=== PATIENT | female | born 1975 | race African-American/Black ===

== ENCOUNTER 2016-11-24 17:53 | Emergency (ER) | payer MEDICARE, MEDICAID ==
[2016-11-24] MEDS ORDERED: IBUPROFEN 800 MG TABLET PO ONE (19:06)
--- NOTE | 2016-11-24 19:09 | ER Document Report ---
ED Medical Screen (RME) - General Stated Complaint: NAUSEA Time seen by provider: 19:06 Mode of Arrival: Ambulatory Information source: Patient Notes: 40-year-old female presents to ED for nausea vomiting diarrhea or fever chills and cough. Her temperature was elevated at 102.3 in RME. Last menstrual period 10/28/2016 I have greeted and performed a rapid initial assessment of this patient. A comprehensive ED assessment and evaluation of the patient, analysis of test results and completion of medical decision making process will be conducted by an additional ED providers. TRAVEL OUTSIDE OF THE [place] IN LAST 30 DAYS: No - Related Data Allergies/Adverse Reactions: codeine Allergy (Verified 11/24/16 19:06) morphine Allergy (Verified 11/24/16 19:06) Past Medical History - Past Medical History Cardiac Medical History: Reports: Hx Hypertension Pulmonary Medical History: Reports: Hx Asthma Past Surgical History: Reports: Hx Orthopedic Surgery - spinal surgery - Immunizations Hx Diphtheria, Pertussis, Tetanus Vaccination: Yes
[2016-11-24 19:31] LABS: ABSOLUTE MONOCYTES (AUTO) 0.9 10^3/uL (0.1-1.4); ABSOLUTE NEUT (AUTO) 5.4 10^3/uL (1.7-8.2); BASOPHILS % (AUTO) 0.4 % (0-2); EOSINOPHILS % (AUTO) 0.2 % (0-6); HEMATOCRIT 36.9 % (36.0-47.0); HEMOGLOBIN 12.6 g/dL (12.0-15.5); HGB HCT DIFFERENCE 0.9; LYMPHOCYTES % (AUTO) 13.4 % (13-45); MEAN CORPUSCULAR HEMOGLOBIN 29.9 pg (27.0-33.4); MEAN CORPUSCULAR HGB CONC 34.1 g/dL (32.0-36.0); MEAN CORPUSCULAR VOLUME 88 fl (80-97); MONOCYTES % (AUTO) 12.7 % (3-13); RED CELL DISTRIBUTION WIDTH 15.1 % (11.5-14.0); SEGMENTED NEUTROPHILS % (AUTO) 73.3 % (42-78); WHITE BLOOD COUNT 7.4 10^3/uL (4.0-10.5)
[2016-11-24 19:50] LABS: APPEARANCE,URINE SLIGHTLY-CLOUDY; BILIRUBIN,URINE SMALL (NEGATIVE); GLUCOSE, URINE NEGATIVE (NEGATIVE); KETONES,URINE NEGATIVE (NEGATIVE); LEUKOCYTE ESTERASE,URINE NEGATIVE (NEGATIVE); NITRITE,URINE NEGATIVE (NEGATIVE); PROTEIN,URINE 100 mg/dL (NEGATIVE); URINE SPECIFIC GRAVITY 1.023
[2016-11-24 19:51] LABS: ALANINE AMINOTRANSFERASE 25 U/L (9-52); ALBUMIN 4.7 g/dL (3.5-5.0); ALKALINE PHOSPHATASE 87 U/L (38-126); ANION GAP 13 (5-19); ASPARTATE AMINO TRANSFERASE 26 U/L (14-36); BILIRUBIN,TOTAL 0.5 mg/dL (0.2-1.3); BLOOD UREA NITROGEN 8 mg/dL (7-20); CALCIUM 9.6 mg/dL (8.4-10.2); CARBON DIOXIDE 26 mmol/L (22-30); CHLORIDE 102 mmol/L (98-107); CREATININE RESULT 0.81 mg/dL (0.52-1.25); GLUCOSE 98 mg/dL (75-110); POTASSIUM 3.3 mmol/L (3.6-5.0); SODIUM 141.3 mmol/L (137-145); TOTAL PROTEIN 8.3 g/dL (6.3-8.2)
[2016-11-24] MEDS ORDERED: ONDANSETRON ODT 4 MG TAB (6 TAB/DSPK) PO PRN (23:16)
[2016-11-24] MEDS ORDERED: ONDANSETRON 4 MG TAB.RAPDIS PO ONE (23:16)
--- NOTE | 2016-11-24 23:20 | ER Document Report ---
ED General - General Chief Complaint: Fever Stated Complaint: NAUSEA Mode of Arrival: Ambulatory Notes: Patient is a 40-year-old female who presents with complaint of coughing and congestion. Some nausea. Vomiting 1. One episode of diarrhea. No fevers. No sick contacts that she is aware of. No other complaints at this time. No fevers. TRAVEL OUTSIDE OF THE [place] IN LAST 30 DAYS: No - Related Data Allergies/Adverse Reactions: codeine Allergy (Verified 11/24/16 19:06) morphine Allergy (Verified 11/24/16 19:06) Past Medical History - General Information source: Patient - Social History Smoking Status: Current Every Day Smoker Chew tobacco use (# tins/day): No Frequency of alcohol use: None Drug Abuse: None Family History: Reviewed & Not Pertinent Patient has suicidal ideation: No Patient has homicidal ideation: No - Past Medical History Cardiac Medical History: Reports: Hx Hypertension Pulmonary Medical History: Reports: Hx Asthma Renal/ Medical History: Denies: Hx Peritoneal Dialysis Past Surgical History: Reports: Hx Orthopedic Surgery - spinal surgery - Immunizations Hx Diphtheria, Pertussis, Tetanus Vaccination: Yes Review of Systems - Review of Systems Notes: My Normal Review Basic REVIEW OF SYSTEMS: CONSTITUTIONAL : Denies fever, chills, or sweats. Denies recent illness. EENT: Nasal congestion CARDIOVASCULAR: Denies chest pain. RESPIRATORY: Cough GASTROINTESTINAL: Denies abdominal pain. One episode of vomiting and diarrhea MUSCULOSKELETAL: Denies neck or back pain or joint pain or swelling. SKIN: Denies rash or skin lesions. NEUROLOGICAL: Denies altered mental status or loss of consciousness. Denies headache. Denies weakness or paralysis or loss of use of either side. Denies problems with gait or speech. Denies sensory or motor loss. ALL OTHER SYSTEMS REVIEWED AND NEGATIVE. Physical Exam - Vital signs Vitals: Temp Pulse Resp BP Pulse Ox 102.3 F H 93 16 166/97 H 100 11/24/16 19:04 11/24/16 19:04 11/24/16 19:04 11/24/16 19:04 11/24/16 19:04 - Notes Notes: General Appearance: Well nourished, alert, cooperative, no acute distress, no obvious discomfort. Well-appearing. Vitals: reviewed, See vital signs table. Head: no swelling or tenderness to the head Eyes: PERRL, EOMI, Conjuctiva clear Mouth: No decreasd moisture Throat: No pharyngeal erythema. No exudates. No tonsillar hypertrophy. Neck: Supple, no neck tenderness, No thyromegaly Lungs: No wheezing, No rales, No rhonci, No accessory muscle use, good air exchange bilaterally. Heart: Normal rate, Regular rythm, No murmur, no rub Abdomen: Normal BS, soft, No rigidity, No abdominal tenderness, No guarding, no rebound, no abdominal masses, no organomegaly Extremities: strength 5/5 in all extremities, good pulses in all extremities, no swelling or tenderness in the extremities, no edema. Skin: warm, dry, appropriate color, no rash Neuro: speech clear, oriented x 3, normal affect, responds appropriately to questions. Course - Vital Signs Vital signs: Temp Pulse Resp BP Pulse Ox 98.6 F 75 18 138/88 H 100 11/24/16 23:24 11/24/16 23:24 11/24/16 23:24 11/24/16 23:24 11/24/16 23:24 - Laboratory Result Diagrams: 11/24/16 19:15 11/24/16 19:15 Laboratory results interpreted by me: 11/24/16 11/24/16 11/24/16 19:15 19:15 19:15 RDW 15.1 H Potassium 3.3 L Total Protein 8.3 H Urine Protein 100 H Urine Blood SMALL H Urine Bilirubin SMALL H Urine Urobilinogen 4.0 H - Transfer of Care Notes: 11/25/16 06:07 Patient's fever improved after Tylenol. She does a lot of congestion on a Exam. Suspect she may have the flu and flu swab is negative. Flu swab does not have 100% sensitivity. She could have a different viral illness as well. She has no evidence of pneumonia. She. Ears are normal without evidence of otitis media. No evidence of pharyngitis on exam. At this time will treat patient with symptomatic care. We'll treat her nausea. Encouraged drink lots of fluids. I will have her take 2 days off work. I encouraged to return to ER shows difficulty breathing, worsening fevers, or feels unwell. Patient agrees with plan will be discharged home. Dictation of this chart was performed using voice recognition software; therefore, there may be some unintended grammatical errors. Discharge - Discharge Clinical Impression: URI (upper respiratory infection) Qualifiers: URI type: unspecified URI Qualified Code(s): J06.9 - Acute upper respiratory infection, unspecified Vomiting Qualifiers: Vomiting type: unspecified Vomiting Intractability: non-intractable Nausea presence: with nausea Qualified Code(s): R11.2 - Nausea with vomiting, unspecified Condition: Good Disposition: HOME, SELF-CARE Additional Instructions: Please return to the ER immediately if you develop worsening fevers, vomiting, difficulty breathing, or feel that your are worsening. Please take the Zofran to help keep your nausea controlled. Please drink lots of clear, noncaffeinated liquids and stay hydrated. Try to eat. Take Tylenol and Motrin for fever control. Please follow up with your doctor or the ER in 2-3 days ir your symptoms are continuing. Prescriptions: Ondansetron [Zofran Odt 4 mg Tablet] 1 tab PO Q4H PRN #15 tab.rapdis PRN Reason: For Nausea/Vomiting Forms: Return to Work Referrals: OFELIA ZAMUDIO MD [Primary Care Provider] - 11/26/16
[2016-11-24 23:25] VITALS: BP 138/88
== END 2016-11-24 23:28 | disposition home or self-care (01) ==
LOC: ER 17:53
DX: J06.9 Acute upper respiratory infection, unspecified (principal); R05 Cough; R11.2 Nausea with vomiting, unspecified; R19.7 Diarrhea, unspecified; R09.81 Nasal congestion; J45.909 Unspecified asthma, uncomplicated; I10 Essential (primary) hypertension; F17.200 Nicotine dependence, unspecified, uncomplicated; Z88.5 Allergy status to narcotic agent
CPT/HCPCS: 99284; 36415; 87086; 83690; 85025; 80053; 81001; 83605; 87804; 71020; A9270 ×3; S0119

== ENCOUNTER 2017-10-20 19:27 | Emergency (ER) | payer MEDICARE, MEDICAID ==
--- NOTE | 2017-10-20 19:37 | ER Document Report ---
ED Medical Screen (RME) - General Chief Complaint: Vag Bleeding, +preg <12wks Stated Complaint: ABDOMINAL PAIN Time Seen by Provider: 10/20/17 19:36 TRAVEL OUTSIDE OF THE [place] IN LAST 30 DAYS: No - HPI Patient complains to provider of: vaginal bleeding, cramping, products passed Notes: 10/20/17 19:52 female presents with vaginal bleeding and abdominal cramping. Patient was playing in the snow today had a gush of blood. Patient is approximately 9 weeks . She went to the bathroom passed clots and possible products of conception. Bleeding has slowed down a great deal. Denies all of symptoms. - Related Data Allergies/Adverse Reactions: codeine Allergy (Verified 11/24/16 19:06) morphine Allergy (Verified 11/24/16 19:06) Past Medical History - Past Medical History Cardiac Medical History: Reports: Hx Hypertension Pulmonary Medical History: Reports: Hx Asthma Renal/ Medical History: Denies: Hx Peritoneal Dialysis Past Surgical History: Reports: Hx Orthopedic Surgery - spinal surgery - Immunizations Hx Diphtheria, Pertussis, Tetanus Vaccination: Yes Physical Exam - Vital signs Vitals: Temp Pulse Resp BP Pulse Ox 98.9 F 91 18 134/87 H 100 10/20/17 19:33 10/20/17 19:33 10/20/17 19:33 10/20/17 19:33 10/20/17 19:33 Course - Vital Signs Vital signs: Temp Pulse Resp BP Pulse Ox 98.9 F 91 18 134/87 H 100 10/20/17 19:33 10/20/17 19:33 10/20/17 19:33 10/20/17 19:33 10/20/17 19:33
[2017-10-20 20:25] LABS: ABSOLUTE EOSINOPHILS # (AUTO) 0.1 10^3/uL (0.0-0.6); ABSOLUTE LYMPHOCYTES (AUTO) 3.5 10^3/uL (0.5-4.7); ABSOLUTE MONOCYTES (AUTO) 0.6 10^3/uL (0.1-1.4); ABSOLUTE NEUT (AUTO) 4.9 10^3/uL (1.7-8.2); BASOPHILS % (AUTO) 0.4 % (0-2); EOSINOPHILS % (AUTO) 1.6 % (0-6); HEMATOCRIT 35.3 % (36.0-47.0); LYMPHOCYTES % (AUTO) 38.2 % (13-45); MEAN CORPUSCULAR HGB CONC 34.1 g/dL (32.0-36.0); MEAN CORPUSCULAR VOLUME 88 fl (80-97); MONOCYTES % (AUTO) 6.7 % (3-13); PLATELET COUNT 262 10^3/uL (150-450); RED BLOOD COUNT 4.02 10^6/uL (3.72-5.28); RED CELL DISTRIBUTION WIDTH 15.9 % (11.5-14.0); SEGMENTED NEUTROPHILS % (AUTO) 53.1 % (42-78); TOTAL CELLS COUNTED % (AUTO) 100 %; WHITE BLOOD COUNT 9.2 10^3/uL (4.0-10.5)
[2017-10-20 20:32] LABS: APPEARANCE,URINE SLIGHTLY-CLOUDY; BILIRUBIN,URINE NEGATIVE (NEGATIVE); COLOR,URINE YELLOW; GLUCOSE, URINE NEGATIVE (NEGATIVE); KETONES,URINE NEGATIVE (NEGATIVE); LEUKOCYTE ESTERASE,URINE NEGATIVE (NEGATIVE); NITRITE,URINE NEGATIVE (NEGATIVE); PROTEIN,URINE NEGATIVE (NEGATIVE); URINE SPECIFIC GRAVITY 1.012; UROBILINOGEN,URINE NEGATIVE mg/dL (<2.0)
[2017-10-20 20:41] LABS: ANION GAP 11 (5-19); BLOOD UREA NITROGEN 9 mg/dL (7-20); CALCIUM 10.2 mg/dL (8.4-10.2); CARBON DIOXIDE 30 mmol/L (22-30); CHLORIDE 103 mmol/L (98-107); GLUCOSE 92 mg/dL (75-110); POTASSIUM 3.6 mmol/L (3.6-5.0); SODIUM 143.6 mmol/L (137-145)
--- NOTE | 2017-10-20 21:37 | RADIOLOGY REPORT (SQ) ---
EXAM DESCRIPTION: U/S OB TRANSVAGINAL W/O DOP COMPLETED DATE/TIME: 10/20/2017 9:29 pm REASON FOR STUDY: spontaneous ? COMPARISON: None. TECHNIQUE: Transvaginal static and realtime grayscale images acquired of the pelvis. Additional enrrique cted spectral and color Doppler images recorded. All images stored on PACs. BHCG: Not available. LIMITATIONS: None. FINDINGS: UTERUS: No visualized intrauterine . RIGHT ADNEXA: Ovary not identified. No adnexal free fluid. No adnexal masses. LEFT ADNEXA: Ovary not identified. No adnexal free fluid. No adnexal masses. FREE FLUID: None. OTHER: No other significant finding. IMPRESSION: NO VISUALIZED INTRA- OR EXTRAUTERINE . bHCG LEVEL NOT AVAILABLE FOR CORRELATION WITH US FINDINGS. ECTOPIC CANNOT BE EXCLUDED. FOLLOW-UP ULTRASOUND AND SERIAL BHCG LEVELS STRONGLY RECOMMENDED TO ACCURATELY ASSESS STATU S. TECHNICAL DOCUMENTATION: JOB ID: [id number] [employer]- All Rights Reserved
--- NOTE | 2017-10-20 22:46 | ER Document Report ---
ED GI/ - General Chief Complaint: Vag Bleeding, +preg <12wks Stated Complaint: ABDOMINAL PAIN Time Seen by Provider: 10/20/17 19:36 Notes: Patient is a 41-year-old female, at 9 weeks gestation by home test, that comes emergency department for chief complaint of vaginal bleeding with lower abdominal cramping. She states she was playing in the snow and had a gush of blood, she states that she went to the bathroom and in the toilet she saw clots and she thinks she might of soft tissue as well. She states bleeding has almost stopped now. She denies dizziness, she denies any current pain. TRAVEL OUTSIDE OF THE [place] IN LAST 30 DAYS: No - Related Data Allergies/Adverse Reactions: codeine Allergy (Verified 11/24/16 19:06) morphine Allergy (Verified 11/24/16 19:06) Past Medical History - General Information source: Patient Last Menstrual Period: 08/18/17 - Social History Smoking Status: Current Every Day Smoker Frequency of alcohol use: None Drug Abuse: None Lives with: Family Family History: Reviewed & Not Pertinent Patient has suicidal ideation: No Patient has homicidal ideation: No - Past Medical History Cardiac Medical History: Reports: Hx Hypertension Pulmonary Medical History: Reports: Hx Asthma Renal/ Medical History: Denies: Hx Peritoneal Dialysis Past Surgical History: Reports: Hx Orthopedic Surgery - spinal surgery - Immunizations Hx Diphtheria, Pertussis, Tetanus Vaccination: Yes Review of Systems - Review of Systems Constitutional: No symptoms reported EENT: No symptoms reported Cardiovascular: No symptoms reported Respiratory: No symptoms reported Gastrointestinal: See HPI Genitourinary: No symptoms reported Female Genitourinary: See HPI Musculoskeletal: No symptoms reported Skin: No symptoms reported Hematologic/Lymphatic: No symptoms reported Neurological/Psychological: No symptoms reported Physical Exam - Vital signs Vitals: Temp Pulse Resp BP Pulse Ox 98.9 F 91 18 134/87 H 100 10/20/17 19:33 10/20/17 19:33 10/20/17 19:33 10/20/17 19:33 10/20/17 19:33 Interpretation: Normal - General General appearance: Alert In distress: None - Patient appears to have recently been crying but she is in no distress - HEENT Head: Normocephalic, Atraumatic Eyes: Normal Conjunctiva: Injected Extraocular movements intact: Yes Eyelashes: Normal Pupils: PERRL Mucous membranes: Normal Pharynx: Normal Neck: Normal - Respiratory Respiratory status: No respiratory distress Chest status: Nontender Breath sounds: Normal. No: Decreased air movement, Wheezing Chest palpation: Normal - Cardiovascular Rhythm: Regular. No: Tachycardia Heart sounds: Normal auscultation, S1 appreciated, S2 appreciated Murmur: No - Abdominal Inspection: Normal Distension: No distension Bowel sounds: Normal Tenderness: Nontender. No: Tender, Guarding - Back Back: Normal, Nontender - Extremities General upper extremity: Normal inspection, Nontender, Normal color, Normal ROM , Normal temperature General lower extremity: Normal inspection, Nontender, Normal color, Normal ROM , Normal temperature, Normal weight bearing. No: Ruiz's sign - Neurological Neuro grossly intact: Yes Cognition: Normal Orientation: AAOx4 [place] Coma Scale Eye Opening: Spontaneous [place] Coma Scale Verbal: Oriented [place] Coma Scale Motor: Obeys Commands Arun Coma Scale Total: 15 Speech: Normal Motor strength normal: LUE, RUE, LLE, RLE Sensory: Normal - Psychological Associated symptoms: Normal affect, Normal mood - Skin Skin Temperature: Warm Skin Moisture: Dry Skin Color: Normal Course - Re-evaluation Re-evalutation: Patient alert, well-appearing, abdomen is not tender or rigid, vital signs unremarkable. CBC, chemistry, urinalysis unremarkable. I added an hCG which is pending. Ultrasound showing no intrauterine or any visualized abnormalities. HCG quantitative is negative. It appears patient was never to begin with and had false positive home test. I therefore do not suspect a ectopic . Patient having irregular menstrual bleeding. Patient is actually very relieved to hear this, she states she has [employer] to follow-up with and she will do so. She states she is ready to leave. Discharged with return precautions. - Vital Signs Vital signs: Temp Pulse Resp BP Pulse Ox 98.5 F 75 14 126/76 H 100 10/20/17 22:55 10/20/17 22:55 10/20/17 22:55 10/20/17 22:55 10/20/17 22:55 - Laboratory Result Diagrams: 10/20/17 20:12 10/20/17 20:12 Laboratory results interpreted by me: 10/20/17 10/20/17 20:12 20:12 Hct 35.3 L RDW 15.9 H Urine Blood MODERATE H Discharge - Discharge Clinical Impression: Vaginal bleeding, Abdominal cramping Condition: Stable Disposition: HOME, SELF-CARE Additional Instructions: Your test is negative. No abnormalities are noted on your ultrasound. Follow-up with [employer] for additional management of irregular menses and . Return to emergency department for any concerning or worsening symptoms including very heavy bleeding, passing out, severe pain, fever, or any other concerning symptoms. Referrals: [facility] [Provider Group] - Follow up in 1 week
[2017-10-20 22:58] VITALS: BP 126/76
== END 2017-10-20 22:58 | disposition home or self-care (01) ==
LOC: ER 19:27
DX: N92.6 Irregular menstruation, unspecified (principal); R10.30 Lower abdominal pain, unspecified; I10 Essential (primary) hypertension; J45.909 Unspecified asthma, uncomplicated; F17.200 Nicotine dependence, unspecified, uncomplicated; Z88.5 Allergy status to narcotic agent
CPT/HCPCS: 36415; 76817; 80048; 81001; 84702; 85025; 86900; 86901; 99284

== ENCOUNTER 2018-04-04 22:34 | Emergency (ER) | payer OTHER, MEDICARE, MEDICAID ==
[2018-04-05] MEDS ORDERED: ACETAMINOPHEN 325 MG TABLET PO ONE (00:52)
[2018-04-05] MEDS ORDERED: ONDANSETRON 4 MG TAB.RAPDIS PO ONE (00:52)
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
[2018-04-05 02:02] VITALS: BP 111/64
== END 2018-04-05 02:02 | disposition home or self-care (01) ==
LOC: ER 22:34
DX: S09.90XA Unspecified injury of head, initial encounter (principal); S46.912A Strain of unspecified muscle, fascia and tendon at shoulder and upper arm level, left arm, initial encounter; S16.1XXA Strain of muscle, fascia and tendon at neck level, initial encounter; F17.200 Nicotine dependence, unspecified, uncomplicated; V43.52XA Car driver injured in collision with other type car in traffic accident, initial encounter; I10 Essential (primary) hypertension; Z88.6 Allergy status to analgesic agent
CPT/HCPCS: 99284; 73030; 70450; 72125; S0119

== ENCOUNTER 2018-06-01 12:23 | Day surgery (SDC) | payer MEDICARE, MEDICAID ==
[2018-05-31 11:59] LABS: HEMATOCRIT 34.7 % (36.0-47.0); HEMOGLOBIN 11.6 g/dL (12.0-15.5); MEAN CORPUSCULAR HEMOGLOBIN 30.3 pg (27.0-33.4); MEAN CORPUSCULAR HGB CONC 33.5 g/dL (32.0-36.0); MEAN CORPUSCULAR VOLUME 90 fl (80-97); PLATELET COUNT 265 10^3/uL (150-450); RED BLOOD COUNT 3.84 10^6/uL (3.72-5.28); RED CELL DISTRIBUTION WIDTH 15.3 % (11.5-14.0); WHITE BLOOD COUNT 17.3 10^3/uL (4.0-10.5)
[2018-05-31 12:27] LABS: APPEARANCE,URINE SLIGHTLY-CLOUDY; BILIRUBIN,URINE NEGATIVE (NEGATIVE); COLOR,URINE YELLOW; GLUCOSE, URINE NEGATIVE (NEGATIVE); KETONES,URINE NEGATIVE (NEGATIVE); LEUKOCYTE ESTERASE,URINE TRACE (NEGATIVE); NITRITE,URINE NEGATIVE (NEGATIVE); PROTEIN,URINE NEGATIVE (NEGATIVE); URINE SPECIFIC GRAVITY 1.025
--- NOTE | 2018-05-31 13:12 | EKG REPORT ---
SEVERITY:- NORMAL ECG - SINUS RHYTHM : Confirmed by: Remigio Chávez MD 31-May-2018 13:12:11
[~2018-06-01 12:23] MED LIST: LACTATED RINGERS 1000 ML IV PRN; LIDOCAINE 0.5% INJ-PF (5 MG/ML) 50 ML SDV SUBCUT PRN
[2018-06-01] MEDS ORDERED: BUPIVACAINE HCL 0.25% /EPINEPHRINE INJ/PF 30 ML SDV ONE (13:53)
[2018-06-01] MEDS ORDERED: ONDANSETRON HCL INJ/PF 4 MG/2 ML SDV ONE (13:56)
[2018-06-01] MEDS ORDERED: MIDAZOLAM 2 MG/2 ML INJ ONE (13:56)
[2018-06-01] MEDS ORDERED: PROPOFOL INJ 200 MG/20 ML VIAL IV ONE (13:56)
[2018-06-01] MEDS ORDERED: HYDROMORPHONE HCL INJ/PF 2 MG/ML AMPULE ONE (13:57)
[2018-06-01] MEDS ORDERED: LIDOCAINE 1%/EPINEPHRINE INJ 20 ML VIAL ONE (14:00)
[2018-06-01] MEDS ORDERED: PROMETHAZINE HCL INJ 25 MG/1 ML VIAL IV PRN ×2 (15:09)
[2018-06-01] MEDS ORDERED: FENTANYL CITRATE INJ/PF 100 MCG/2 ML AMPUL IV PRN ×3 (15:09)
[2018-06-01] MEDS ORDERED: DIPHENHYDRAMINE HCL 50 MG/ML VIAL IV PRN ×2 (15:09→15:54)
[2018-06-01] MEDS ORDERED: MEPERIDINE HCL/PF INJ 25 MG/1 ML DISP.SYRIN IV PRN (15:09)
[2018-06-01] MEDS ORDERED: MORPHINE SULFATE 10 MG/ML INJ IM PRN (15:53)
[2018-06-01] MEDS ORDERED: IBUPROFEN 800 MG TABLET PO PRN (15:54)
[2018-06-01] MEDS ORDERED: OXYCODONE-ACETAMINOPHEN 5-325 MG TABLET PO PRN ×2 (15:55)
[2018-06-01 17:05] VITALS: BP 138/79
--- NOTE | 2018-06-01 18:01 | OPERATIVE REPORT E ---
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 SURGEON: ANDREE VALDIVIA M.D. ANESTHESIA: ELISHA ROSADO M.D. FINDINGS: Normal parous appearing cervix. COMPLICATIONS: None. ESTIMATED BLOOD LOSS: 10 mL SPECIMENS REMOVED: A cold knife cone conization and an endocervical curettage specimen. PROCEDURE: Cold knife cone. PROCEDURE IN DETAIL: The patient was taken to the operating room, prepared and draped in the normal sterile fashion in the dorsal lithotomy position. Under sterile conditions, the in-and-out catheter was performed draining approximately 10 mL of clear urine. A sterile speculum was then placed in the vagina and the cervix was grasped on the anterior lip with a single-tooth tenaculum and the cervix was prepped with Betadine. The cervix was then injected with approximately 10 mL of Marcaine 0.25% with epinephrine. In the circumferential fashion 2 stay sutures were placed at 3 and 9 o'clock on the cervix and tagged to the surgical drape. A Obion blade was then used starting at the 12 o'clock position and circumferentially amputating a segment of the cervix in a deep inward fashion. This was repeated with several circumferential passes until the specimen was freed and amputated at the deepest aspect. The specimen was then tagged with silk at the 12 o'clock position and passed off the field. A sharp curettage was then performed of the cervical canal just beyond the conization. The deep edge was then copiously cauterized using the Bovie on a ball cautery. The defect was then packed with a small piece of Surgif[place]am that had been soaked in Monsel for hemostasis and this was tied in using the 2 stay sutures. The instruments were then removed. Sponge, lap and needle counts were correct x2 and the patient was taken to recovery in stable in condition. DICTATING PHYSICIAN: ANDREE VALDIVIA M.D. [id number] PHY#: [id number] ID: [id number] JOB#: [id number] ACCT: [id number] cc:ANDREE VALDIVIA M.D. >
== END 2018-06-01 16:50 | disposition home or self-care (01) ==
LOC: OROUT 12:23
PROVIDERS: ATTEND Obstetrics & Gynecology
DX: D06.0 Carcinoma in situ of endocervix (principal); N93.9 Abnormal uterine and vaginal bleeding, unspecified; I10 Essential (primary) hypertension; Z79.01 Long term (current) use of anticoagulants; Z88.5 Allergy status to narcotic agent; Z01.818 Encounter for other preprocedural examination; Z79.899 Other long term (current) drug therapy; J45.909 Unspecified asthma, uncomplicated; M19.90 Unspecified osteoarthritis, unspecified site
CPT/HCPCS: 93010; 93005; 36415 ×2; 84132; 85027; 81025; 81001; 88305 ×2; 88307 ×2; 57520; J2250; J3490; J1170; J2405; J2704; 940

== ENCOUNTER 2018-10-09 00:11 | Emergency (ER) | payer MEDICARE, MEDICAID ==
[2018-10-09] MEDS ORDERED: KETOROLAC TROMETHAMINE 60 MG/2 ML SDV IM ONE (00:28)
[2018-10-09] MEDS ORDERED: CYCLOBENZAPRINE HCL 10 MG TABLET PO ONE (00:28)
[2018-10-09 00:30] VITALS: BP 138/80
[2018-10-09] MEDS ORDERED: HYDROCODONE/ACETAMINOPHEN 10-325 MG TABLET PO ONE (01:04)
--- NOTE | 2018-10-09 01:23 | RADIOLOGY REPORT (SQ) ---
EXAM DESCRIPTION: XR RIBS UNILATERAL WITH CHEST COMPLETED DATE/TME: 10/09/2018 00:28 CLINICAL HISTORY: 42 years Female, pain COMPARISON:11/24/2016 NUMBER OF VIEWS/TECHNIQUE: 3 FINDINGS: No displaced rib fracture. No pneumothorax. No acute cardiopulmonary findings. Tendons leads tips at the level of the mid thoracic spine. Right upper abdominal clips. Moderate levo convexity at the thoracolumbar junction. IMPRESSION: No acute findings.
--- NOTE | 2018-10-09 01:39 | ER Document Report ---
ED General - General Chief Complaint: Rib Pain Stated Complaint: RIB PAIN Time Seen by Provider: 10/09/18 00:20 Notes: Patient is a 42-year-old female presents the emergency department complaining of left lower rib pain. Patient states she has had a cough and congestion for the last 2 days. Patient is denying any fever or trauma to her left lower side. Patient states she had an epistaxis lasting about a minute last night and noted one episode of vomiting with no blood noted today. Patient states she sometimes gets bloody noses when she is really congested. Patient states the pain in her left lower ribs increases when she moves, incr eases upon palpation, increases upon deep inspiration. Patient states she did take naproxen and Flexeril prior to coming to the emergency room which has not helped her pain. Patient is denying any abdominal pain, dysuria, vaginal discharge. Again patient is denying any trauma or injury to the left rib area. Past medical history: Hypertension, thoracic and lumbar spinal fusions with nerve stimulator, cervical cancer Medications: Amlodipine, HCTZ, naproxen, Flexeril Allergies: Codeine, morphine Surgical history: Cholecystectomy TRAVEL OUTSIDE OF THE [place] IN LAST 30 DAYS: No - Related Data Allergies/Adverse Reactions: codeine Allergy (Verified 10/09/18 00:22) morphine Allergy (Verified 10/09/18 00:22) Past Medical History - General Information source: Patient - Social History Smoking Status: Unknown if Ever Smoked Family History: Reviewed & Not Pertinent Patient has suicidal ideation: No Patient has homicidal ideation: No - Past Medical History Cardiac Medical History: Reports: Hx Hypertension Denies: Hx Coronary Artery Disease, Hx Heart Attack Pulmonary Medical History: Reports: Hx Asthma - MILD Denies: Hx Bronchitis, Hx COPD, Hx Pneumonia Neurological Medical History: Denies: Hx Cerebrovascular Accident, Hx Seizures Renal/ Medical History: Denies: Hx Peritoneal Dialysis Musculoskeletal Medical History: Denies Hx Arthritis Past Surgical History: Reports: Hx Orthopedic Surgery - spinal surgery - Immunizations Hx Diphtheria, Pertussis, Tetanus Vaccination: Yes Review of Systems - Review of Systems Constitutional: See HPI EENT: See HPI Cardiovascular: No symptoms reported Respiratory: See HPI Gastrointestinal: See HPI Genitourinary: No symptoms reported Female Genitourinary: No symptoms reported Musculoskeletal: See HPI Skin: No symptoms reported Hematologic/Lymphatic: No symptoms reported Neurological/Psychological: No symptoms reported Physical Exam - Vital signs Vitals: Temp Pulse Resp BP Pulse Ox 98.8 F 97 18 138/80 H 97 10/09/18 00:28 10/09/18 00:28 10/09/18 00:28 10/09/18 00:28 10/09/18 00:28 - Notes Notes: GENERAL: Alert, interacts well. Holding her left lower ribs intermittently crying in pain HEAD: Normocephalic, atraumatic. No frontal or maxillary sinus tenderness EYES: Pupils equal, round, and reactive to light. Extraocular movements intact. ENT: Oral mucosa moist, tongue midline. Nares patent, swollen turbinates bilaterally, TM's intact, nonerythematous, nonbulging bilaterally. Pharynx within normal limits, no palatal petechiae or exudate noted. NECK: Full range of motion. Supple. Trachea midline. LUNGS: Clear to auscultation bilaterally, no wheezes, rales, or rhonchi. No respiratory distress. HEART: Regular rate and rhythm. No murmur Chest: No crepitus felt, no erythema or ecchymosis seen on anterior posterior trunk ABDOMEN: Soft, non-tender. Non-distended. Bowel sounds present in all 4 quadrants. EXTREMITIES: Moves all 4 extremities spontaneously. No edema, normal radial and dorsalis pedis pulses bilaterally. No cyanosis. BACK: no cervical, thoracic, lumbar midline tenderness. No saddle anesthesia, normal distal neurovascular exam. NEUROLOGICAL: Alert and oriented x3. Normal speech. cranial nerves II through XII grossly intact PSYCH: Normal affect, normal mood. SKIN: Warm, dry, normal turgor. No rashes or lesions noted. Course - Re-evaluation Re-evalutation: 10/09/18 01:34 Upon my reexamination to discuss x-ray results with patient she is sleeping. Once I wake her up she then is holding her left lower ribs and intermittently crying in pain. Discussed that her x-rays are negative at this time and likely she pulled a muscle from coughing so hard. I am not concerned for any other etiology at this time to include myocardial infarction or PE. Patient states her pain had developed after multiple episodes of coughing. States it hurts more when she moves and takes a deep breath, and on palpation of her left lower ribs. Chest x-ray reveals no signs of pneumonia, pneumothorax, rib fracture at this time Discussed with patient use of incentive spirometer in case a rib fracture is very that did not show up on x-ray. Discussed use of pain management at home and cough suppressants. Close return precautions discussed. - Vital Signs Vital signs: Temp Pulse Resp BP Pulse Ox 98.8 F 97 18 138/80 H 97 10/09/18 00:28 10/09/18 00:28 10/09/18 00:28 10/09/18 00:28 10/09/18 00:28 Discharge - Discharge Clinical Impression: Rib pain on left side Upper respiratory infection Qualifiers: URI type: unspecified viral URI Qualified Code(s): J06.9 - Acute upper respiratory infection, unspecified Condition: Stable Disposition: HOME, SELF-CARE Instructions: Chest Wall Pain ([facility]), Rib Injuries and Fractures ([facility]), Upper Respiratory Illness ([facility]) Additional Instructions: As we discussed your chest x-ray reveals no signs of fractures at this time. It also reveals no signs of pneumonia or clots in your lung tissue. You should take medications as prescribed. Please use incentive spirometer as I do not want you to develop pneumonia. Please return to the emergency room for any other concerning symptoms. Prescriptions: Benzonatate [Tessalon Perles 100 mg Capsule] 100 mg PO Q8HP PRN #40 capsule PRN Reason: Hydrocodone/Acetaminophen [[place] 10-325 Tablet] 1 each PO Q6 #15 tablet Mometasone Furoate [Nasonex] 1 spray NS Q12 #1 spray.pump Referrals: SKYLER CHAVEZ MD [Primary Care Provider] - Follow up as needed
== END 2018-10-09 02:13 | disposition home or self-care (01) ==
LOC: ER 00:11
DX: J06.9 Acute upper respiratory infection, unspecified (principal); R07.89 Other chest pain; I10 Essential (primary) hypertension; Z88.6 Allergy status to analgesic agent
CPT/HCPCS: 99283; 71101; A9270

== ENCOUNTER 2019-05-26 06:09 | Emergency (ER) | payer MEDICARE, MEDICAID ==
--- NOTE | 2019-05-26 08:17 | ER Document Report ---
ED General - General Chief Complaint: Hand Pain Stated Complaint: HAND AND ARM PAIN Time Seen by Provider: 05/26/19 07:53 Primary Care Provider: SKYLER CHAVEZ MD [Primary Care Provider] - Follow up as needed TRAVEL OUTSIDE OF THE [place] IN LAST 30 DAYS: No - HPI Notes: Patient is a 43-year-old female presents to the emergency department for evaluation of pain in her right wrist, which radiates into her hand and forearm, as well as numbness and tingling. She states is having difficulty straightening her fingers. She denies any injury. She states she woke up in the middle of the night like this. She states that the pain is a burning pain, she has some tingling sensations intermittently, but otherwise states she feels completely numb to that hand. She denies any neck pain. No visual changes. Speaking a swelling without difficulty. No other paresthesias, weakness. No recent head injury. - Related Data Allergies/Adverse Reactions: codeine Allergy (Verified 10/09/18 00:22) morphine Allergy (Verified 10/09/18 00:22) Past Medical History - General Information source: Patient - Social History Smoking Status: Current Every Day Smoker Chew tobacco use (# tins/day): No Frequency of alcohol use: None Drug Abuse: None Family History: DM, Hypertension Patient has suicidal ideation: No Patient has homicidal ideation: No - Past Medical History Cardiac Medical History: Reports: Hx Hypertension Denies: Hx Coronary Artery Disease, Hx Heart Attack Pulmonary Medical History: Denies: Hx Bronchitis, Hx COPD, Hx Pneumonia Neurological Medical History: Denies: Hx Cerebrovascular Accident, Hx Seizures Renal/ Medical History: Denies: Hx Peritoneal Dialysis Musculoskeletal Medical History: Denies Hx Arthritis Past Surgical History: Reports: Hx Orthopedic Surgery - spinal surgery - Immunizations Hx Diphtheria, Pertussis, Tetanus Vaccination: Yes Review of Systems - Review of Systems Constitutional: No symptoms reported EENT: No symptoms reported Cardiovascular: No symptoms reported Respiratory: No symptoms reported Gastrointestinal: No symptoms reported Genitourinary: No symptoms reported Musculoskeletal: See HPI Skin: No symptoms reported Neurological/Psychological: See HPI Physical Exam - Vital signs Vitals: Temp Pulse Resp BP Pulse Ox 98 F 78 16 169/92 H 99 05/26/19 06:10 05/26/19 06:10 05/26/19 06:10 05/26/19 06:10 05/26/19 06:10 - Notes Notes: Vital signs reviewed, please refer to chart. Head is normocephalic, atraumatic. Pupils equal round, reactive to light. Neck is supple without meningismus. Heart is regular rate and rhythm. Lungs are clear to auscultation bilaterally. Abdomen is soft, nontender, normoactive bowel sounds throughout. Extremities without cyanosis, clubbing. Posterior calves are nontender. Peripheral pulses are equal. Skin is warm and dry. Examination of the right upper extremity yields no obvious deformity. She has full range of motion of the shoulder and elbow. Patient has full passive range of motion of the wrist, fingers, thumb, although wrist range of motion as well as full flexion of the fingers seems to elicit pain. He does not have significant pain with flexion of the DIP, started to have more significant pain across the mid palmar surface with flexion of the PIP and MCP. Full opposition, extension, abduction, abduction of the thumb. Sensation is diminished to light touch throughout the entire hand, both palmar and dorsal aspects. Radial pulse 2+, ulnar pulse one plus. Patient has mild tenderness to palpation throughout all of the carpal bones, as well as the distal radius and ulna. Patient refuses active range of motion, stating its too painful. Negative Tinel's test. Course - Re-evaluation Re-evalutation: 05/26/19 08:17 Patient presents emerged department for evaluation. Because of her significant bony tenderness we will go ahead and order an x-ray of her wrist. I do suspect some sort of nerve entrapment is causing her symptoms at this time. Her symptoms are not entirely consistent with any peripheral nerve entrapment, although radial nerve palsy would certainly be high on the list. Given lack of fracture, will likely treat with cock-up splint, steroids, close follow-up. 05/26/19 09:28 X-rays unremarkable. Patient placed in cock-up splint found to be neurovascularly intact following. We will send her home with Medrol Dosepak and referral back to primary care. If her symptoms persist she may require EMG for further evaluation. 05/26/19 09:29 - Vital Signs Vital signs: Temp Pulse Resp BP Pulse Ox 98 F 78 16 169/92 H 99 05/26/19 06:10 05/26/19 06:10 05/26/19 06:10 05/26/19 06:10 05/26/19 06:10 - Diagnostic Test Radiology reviewed: Reports reviewed Radiology results interpreted by me: 05/26/19 09:29 Wrist X-Ray 05/26/19 08:11 IMPRESSION: NO FRACTURE. Discharge - Discharge Clinical Impression: Right wrist pain, Right hand paresthesia Condition: Stable Disposition: HOME, SELF-CARE Instructions: Numbness or Paresthesia ([facility]) Additional Instructions: I suspect you have a peripheral nerve issue which is causing your symptoms today. Wear splint as directed, particularly at night. Take all of the medication as prescribed until gone. Follow-up with your doctor in 1 to 2 weeks if symptoms persist. If you develop increased weakness, difficulty seeing, speaking, swallowing, or any other new or concerning symptoms, return immediately to the emergency department for evaluation. Referrals: SKYLER CHAVEZ MD [Primary Care Provider] - Follow up as needed
--- NOTE | 2019-05-26 08:48 | RADIOLOGY REPORT (SQ) ---
EXAM DESCRIPTION: WRIST RIGHT 3 VIEWS COMPLETED DATE/TIME: 05/26/2019 8:26 am REASON FOR STUDY: pain COMPARISON: None. EXAM PARAMETERS: NUMBER OF VIEWS: Three views. TECHNIQUE: AP, lateral and oblique radiographic images acquired of the right wrist. LIMITATIONS: None. FINDINGS: MINERALIZATION: Normal. BONES: No acute fracture or dislocation. No worrisome bone lesions. JOINTS: No effusion. SOFT TISSUES: No significant soft tissue swelling. No radiopaque foreign body. OTHER: No other significant finding. IMPRESSION: NO FRACTURE. TECHNICAL DOCUMENTATION: JOB ID: [id number] [place]-[id number] 2010 [email or web address]- All Rights Reserved Reading location - IP/workstation name: [email or web address]
[2019-05-26 10:32] VITALS: BP 174/102
== END 2019-05-26 10:33 | disposition home or self-care (01) ==
LOC: ER 06:09
DX: M25.531 Pain in right wrist (principal); R20.2 Paresthesia of skin; F17.200 Nicotine dependence, unspecified, uncomplicated; I10 Essential (primary) hypertension; Z88.6 Allergy status to analgesic agent
CPT/HCPCS: 99283; 73110; L3908

== ENCOUNTER → 2019-07-23 | Outpatient (CLI) | payer MEDICARE, MEDICAID ==
[2019-07-23 12:09] LABS: ANION GAP 8 (5-19); BLOOD UREA NITROGEN 8 mg/dL (7-20); CALCIUM 9.7 mg/dL (8.4-10.2); CARBON DIOXIDE 30 mmol/L (22-30); CHLORIDE 103 mmol/L (98-107); GLUCOSE 84 mg/dL (75-110); POTASSIUM 4.7 mmol/L (3.6-5.0)
== END ==
LOC: OD 10:43
PROVIDERS: ATTEND Orthopaedic Surgery
DX: E87.6 Hypokalemia (principal)
CPT/HCPCS: 36415; 80048

== ENCOUNTER 2019-07-24 11:47 | Day surgery (SDC) | payer MEDICARE, MEDICAID ==
[2019-07-17 10:56] LABS: ABSOLUTE LYMPHOCYTES (AUTO) 1.9 10^3/uL (0.5-4.7); ABSOLUTE MONOCYTES (AUTO) 0.9 10^3/uL (0.1-1.4); ABSOLUTE NEUT (AUTO) 3.9 10^3/uL (1.7-8.2); BASOPHILS % (AUTO) 0.5 % (0-2); EOSINOPHILS % (AUTO) 0.3 % (0-6); HEMATOCRIT 32.9 % (36.0-47.0); HEMOGLOBIN 11.3 g/dL (12.0-15.5); LYMPHOCYTES % (AUTO) 28.4 % (13-45); MEAN CORPUSCULAR HEMOGLOBIN 29.5 pg (27.0-33.4); MEAN CORPUSCULAR HGB CONC 34.3 g/dL (32.0-36.0); MEAN CORPUSCULAR VOLUME 86 fl (80-97); MONOCYTES % (AUTO) 13.3 % (3-13); PLATELET COUNT 198 10^3/uL (150-450); RED BLOOD COUNT 3.83 10^6/uL (3.72-5.28); SEGMENTED NEUTROPHILS % (AUTO) 57.5 % (42-78); TOTAL CELLS COUNTED % (AUTO) 100 %; WHITE BLOOD COUNT 6.7 10^3/uL (4.0-10.5)
[2019-07-17 11:30] LABS: ANION GAP 10 (5-19); BLOOD UREA NITROGEN 13 mg/dL (7-20); CALCIUM 9.8 mg/dL (8.4-10.2); CARBON DIOXIDE 30 mmol/L (22-30); CHLORIDE 100 mmol/L (98-107); GLUCOSE 120 mg/dL (75-110)
[~2019-07-24 11:47] MED LIST changes: +CEFAZOLIN SODIUM 2 GM in DEXTROSE 5%-WATER 100 ML IV PRN; +FENTANYL CITRATE INJ/PF 100 MCG/2 ML AMPUL ONE; +MIDAZOLAM 2 MG/2 ML INJ ONE; +PROPOFOL INJ 200 MG/20 ML VIAL IV ONE
[2019-07-24] MEDS ORDERED: RINGERS SOLUTION,LACTATED 1,000 ML IV PRN (12:23)
[2019-07-24] MEDS ORDERED: ALBUTEROL SULFATE 0.083% NEB 2.5 MG/3 ML AMPUL NEB ONE ×2 (12:27→12:30)
[2019-07-24] MEDS ORDERED: RINGERS SOLUTION,LACTATED 500 ML IV ONE (12:30)
[2019-07-24] MEDS ORDERED: LIDOCAINE 1% INJ-PF (10 MG/ML) 30 ML SDV ONE (14:24)
[2019-07-24] MEDS ORDERED: PROPOFOL INJ 200 MG/20 ML VIAL IV ONE (14:38)
[2019-07-24] MEDS ORDERED: LIDOCAINE 1% INJ (10 MG/ML) 10 ML MDV INJ ONE (15:05)
[2019-07-24] MEDS ORDERED: DIPHENHYDRAMINE HCL 50 MG/ML VIAL IV PRN (15:28)
[2019-07-24] MEDS ORDERED: PROMETHAZINE HCL INJ 25 MG/1 ML VIAL IV PRN ×2 (15:28)
[2019-07-24] MEDS ORDERED: FENTANYL CITRATE INJ/PF 100 MCG/2 ML AMPUL IV PRN ×4 (15:28→15:32)
[2019-07-24] MEDS ORDERED: ONDANSETRON HCL INJ/PF 4 MG/2 ML SDV IV PRN ×2 (15:28→15:32)
[2019-07-24] MEDS ORDERED: MEPERIDINE HCL/PF INJ 25 MG/1 ML DISP.SYRIN IV PRN (15:28)
[2019-07-24] MEDS ORDERED: HYDROCODONE/ACETAMINOPHEN 5-325 MG TABLET PO PRN (15:32)
--- NOTE | 2019-07-24 15:35 | Discharge Summary ---
Discharge Summary (SDC) - Discharge Final Diagnosis: Right index finger mass Date of Surgery: 07/24/19 Discharge Date: 07/24/19 Condition: Good Treatment or Instructions: Schedule Follow Up w/ Dr. Jeffy Felipe @ [facility] for Surgery to be seen in 10-14 days or as scheduled [place]: [place]: [place]: May remove dressing on postop day #3, keep incision covered and dry. Ice and elevate May begin finger range of motion attempting to make full fist. Stool softener of choice when on pain medication. USE OF [id number] IBUPROFEN: Ibuprofen (Advil, Nuprin, Medipren, Motrin IB) is a medication for fever and pain control. In addition, it has anti- inflammatory effects which may be beneficial, especially in the treatment of injuries. It's best to take ibuprofen with food. Persons with ulcer disease or allergy to aspirin should notify their physician of this before taking ibuprofen. Ibuprofen can be given every four to six hours, for a total of four doses daily. Age Pain or fever dose Antiinflammatory dose 6-8 yr 200 mg (1 tab) 200 mg (1 tab) 9-11 yr 200 mg (1 tab) 200-400 mg (1-2 tab) 11-14 yr 200-400 mg (1-2 tab) 400 mg (2 tab) 15-adult 400 mg (2 tab) 600 mg (3 tab) ORAL NARCOTIC MEDICATION: You have been given a prescription for pain control. This medication is a narcotic. It's best taken with food, as nausea can result if taken on an empty stomach. Don't operate machinery or drive within six hours of taking this medication. Do not combine this medicine with alcohol, or with any medication which can cause sedation (such as cold tablets or sleeping pills) unless you get permission from the physician. Narcotics tend to cause constipation. If possible, drink plenty of fluids and eat a diet high in fiber and fruits. Please be aware that prescription narcotics also have the potential for abuse. People become addicted to these medications because of the general sense of wellbeing that they induce. This feeling along with a significant reduction in tension, anxiety, and aggression provides a stimulating seductive quality to these drugs. Once your pain is under control, we encourage you to discard your unused narcotics. Prescriptions: Hydrocodone/Acetaminophen [[place] 5-325 mg Tablet] 1 tab PO Q6 PRN #15 tablet PRN Reason: Referrals: SKYLER CHAVEZ MD [Primary Care Provider] - Discharge Diet: As Tolerated Respiratory Treatments at Home: Deep Breathing/Coughing Discharge Activity: No Lifting Over 10 Pounds, No Lifting/Push/Pulling Report the Following to Your Physician Immediately: Fever over 101 Degrees, Unusual Bleeding, Redness, Swelling, Warmth, Increased Soreness
--- NOTE | 2019-07-24 15:35 | Operative Report ---
Operative Report DATE OF SURGERY: 07/24/19 PREOPERATIVE DIAGNOSIS: Right index finger mass POSTOPERATIVE DIAGNOSIS: Same OPERATION: Excision mass right index finger with advancement flap SURGEON: GERDA SANCHEZ ANESTHESIA: LMAC COMPLICATIONS: None ESTIMATED BLOOD LOSS: Minimal PROCEDURE: Indication for above procedure: 43-year-old female who sustained injury to her index finger she then states she developed a mass along the index finger which is extremely painful. Work-up was performed to identify exact etiology however MRI was negative. We discussed treatment options including postoperative expectations and outcomes after discussing his options patient verbalized understanding and consented for surgical procedure. Procedure In Detail: Patient was seen and evaluated in the preoperative holding area. The RIGHT upper extremity was initialized and marked. Patient received 2g of Ancef IV for bacterial prophylaxis. Patient was taken back to the operative room where transferred to the operative table. Once they were adequately anesthetized a surgical team debriefing was performed ensuring all instrumentation was available, the surgical procedure was discussed with possible concerns reviewed. A digital block was performed utilizing 10 mL of 1% lidocaine without epinephrine. The upper extremity was prepped with chlorhexidine and alcohol and draped in a sterile fashion. A timeout was done identifying correct patient, procedure and extremity everyone in attendance agree with this and verbalized no concerns. The extremity was elevated and digital tourniquet placed Mass involving skin deep soft tissue including tendon was ellipticized and removed. Remaining mass attached to the dorsal ulnar aspect of the extensor tendon was excised and sent to pathology. Small peripheral veins were coagulated with bipolar cautery. The skin including subcutaneous fat was mobilized proximally and distally. Then a irregular Zitelli type configuration was then constructed of the adjacent 4 mm tissue and advanced to close the defect of the ellipsoid skin. This was reapproximated with interrupted 5-0 chromic gut suture. Wound was dressed Xeroform 4 x 4's and a fall fluffing Sponge counts, instrument counts, needle counts counts were correct. Patient was then awoken from anesthesia. Transferred from the operating room table to the operating room stretcher. There was no intraoperative complications patient tolerated procedure well stable to PACU. Postoperative plan: Patient will follow-up as scheduled for wound check. They will call with any questions or concerns.
[2019-07-24] MEDS ORDERED: DEXMEDETOMIDINE INJ 80 MCG/20 ML VIAL IV ONE (15:48)
[2019-07-24] MEDS ORDERED: HYDROCODONE/ACETAMINOPHEN 5-325 MG TABLET ONE (16:57)
[2019-07-24 18:13] VITALS: BP 125/75
== END 2019-07-24 17:50 | disposition home or self-care (01) ==
LOC: OROUT 11:47
PROVIDERS: ATTEND Orthopaedic Surgery
DX: R22.31 Localized swelling, mass and lump, right upper limb (principal); F17.210 Nicotine dependence, cigarettes, uncomplicated; J45.909 Unspecified asthma, uncomplicated; Z79.899 Other long term (current) drug therapy; Z79.51 Long term (current) use of inhaled steroids
CPT/HCPCS: 36415 ×2; 84132; 85025; 80048; 88305 ×2; 94640; 01810; 26115; J2250; J0690; J3010; J3490 ×2; J7060; J2704; A9270 ×2; 1810; 88341; 88342

== ENCOUNTER 2019-12-12 07:19 | Emergency (ER) | payer OTHER, MEDICARE, MEDICAID ==
[2019-12-12 07:32] VITALS: BP 166/103
[2019-12-12] MEDS ORDERED: ACETAMINOPHEN 325 MG TABLET PO ONE (08:45)
[2019-12-12] MEDS ORDERED: HYDROMORPHONE HCL INJ/PF 2 MG/ML AMPULE IV ONE ×2 (11:26→13:26)
[2019-12-12] MEDS ORDERED: ONDANSETRON HCL INJ/PF 4 MG/2 ML SDV IV ONE (11:26)
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
[2019-12-12 11:54] LABS: ABSOLUTE EOSINOPHILS # (AUTO) 0.1 10^3/uL (0.0-0.6); ABSOLUTE LYMPHOCYTES (AUTO) 2.6 10^3/uL (0.5-4.7); ABSOLUTE MONOCYTES (AUTO) 0.4 10^3/uL (0.1-1.4); ABSOLUTE NEUT (AUTO) 3.6 10^3/uL (1.7-8.2); BASOPHILS % (AUTO) 0.4 % (0-2); EOSINOPHILS % (AUTO) 1.1 % (0-6); HEMATOCRIT 36.3 % (36.0-47.0); HEMOGLOBIN 12.6 g/dL (12.0-15.5); LYMPHOCYTES % (AUTO) 38.6 % (13-45); MEAN CORPUSCULAR HEMOGLOBIN 30.5 pg (27.0-33.4); MEAN CORPUSCULAR HGB CONC 34.7 g/dL (32.0-36.0); MEAN CORPUSCULAR VOLUME 88 fl (80-97); MONOCYTES % (AUTO) 6.5 % (3-13); PLATELET COUNT 225 10^3/uL (150-450); RED BLOOD COUNT 4.12 10^6/uL (3.72-5.28); RED CELL DISTRIBUTION WIDTH 15.3 % (11.5-14.0); SEGMENTED NEUTROPHILS % (AUTO) 53.4 % (42-78); TOTAL CELLS COUNTED % (AUTO) 100 %; WHITE BLOOD COUNT 6.8 10^3/uL (4.0-10.5)
[2019-12-12 12:14] LABS: ANION GAP 6 (5-19); BLOOD UREA NITROGEN 12 mg/dL (7-20); CALCIUM 9.8 mg/dL (8.4-10.2); CARBON DIOXIDE 29 mmol/L (22-30); CHLORIDE 105 mmol/L (98-107); GLUCOSE 89 mg/dL (75-110); POTASSIUM 4.3 mmol/L (3.6-5.0)
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
== END 2019-12-12 14:49 | disposition home or self-care (01) ==
LOC: ER 07:19
DX: S16.1XXA Strain of muscle, fascia and tendon at neck level, initial encounter (principal); S93.402A Sprain of unspecified ligament of left ankle, initial encounter; S29.011A Strain of muscle and tendon of front wall of thorax, initial encounter; R10.12 Left upper quadrant pain; M54.5 Low back pain; R51 Headache; M54.9 Dorsalgia, unspecified; M54.2 Cervicalgia; R07.9 Chest pain, unspecified; M25.572 Pain in left ankle and joints of left foot; R42 Dizziness and giddiness; R11.0 Nausea; V87.7XXA Person injured in collision between other specified motor vehicles (traffic), initial encounter; Z88.8 Allergy status to other drugs, medicaments and biological substances; Z87.891 Personal history of nicotine dependence; I10 Essential (primary) hypertension; J45.909 Unspecified asthma, uncomplicated
CPT/HCPCS: 96376; 99284; 96374; 96375; 36415; 85025; 80048; 73610; 71046; 70450; 72125; 74177; J1170; J2405